=== PATIENT | male | born 1950 ===

== ENCOUNTER → 2020-04-24 10:30 | Outpatient (CLI) | payer OTHER | END | disposition home or self-care (01) | LOC: D.LABREF 10:30 | PROVIDERS: ATTEND Emergency Medicine | DX: K70.31 Alcoholic cirrhosis of liver with ascites (principal); E87.6 Hypokalemia; E44.1 Mild protein-calorie malnutrition; H10.10 Acute atopic conjunctivitis, unspecified eye ==

== ENCOUNTER → 2020-05-02 18:32 | Outpatient (CLI) | payer OTHER | END | disposition home or self-care (01) | LOC: D.LABREF 18:32 | PROVIDERS: ATTEND Emergency Medicine | DX: K74.60 Unspecified cirrhosis of liver (principal) ==

== ENCOUNTER → 2020-05-09 13:54 | Outpatient (CLI) | payer OTHER | END | disposition home or self-care (01) | LOC: D.LABREF 13:54 | PROVIDERS: ATTEND Emergency Medicine | DX: K70.31 Alcoholic cirrhosis of liver with ascites (principal); E44.1 Mild protein-calorie malnutrition; F10.10 Alcohol abuse, uncomplicated ==

== ENCOUNTER → 2020-05-16 14:30 | Outpatient (CLI) | payer OTHER | END | disposition home or self-care (01) | LOC: D.LABREF 14:30 | PROVIDERS: ATTEND Emergency Medicine | DX: K74.60 Unspecified cirrhosis of liver (principal) ==

== ENCOUNTER → 2020-08-02 16:22 | Outpatient (CLI) | payer OTHER ==
[2020-08-02 18:18] LABS: ALBUMIN 2.5 g/dL (3.4-5.0); ANION GAP 10.2 mmol/L (8-16); BILIRUBIN - TOTAL 2.16 mg/dL (0.2-1.3); CALCIUM 8.4 mg/dL (8.5-10.1); CARBON DIOXIDE 24.4 mmol/L (21.0-32.0); CREATININE - SERUM 1.3 mg/dL (0.6-1.3); POTASSIUM - SERUM 3.6 mmol/L (3.5-5.1); PROTEIN - SERUM 7.1 g/dL (6.4-8.2)
[2020-08-02 18:25] LABS: HEMATOCRIT 36.5 % (42.0-54.0); HEMOGLOBIN 12.5 g/dL (13.5-17.5); MCH 31.9 pg (26.0-34.0); MCHC 34.2 g/dL (31.0-37.0); MCV 93.1 fL (80.0-100.0); MEAN PLATELET VOLUME 9.2 fL (7.4-10.4); RBC 3.92 10x6/uL (4.20-6.10); RDW 17.9 % (11.5-14.5); WBC 4.5 10x3/uL (4.8-10.8)
== END | disposition home or self-care (01) ==
LOC: D.LABREF 16:22
PROVIDERS: ATTEND Legal Medicine
DX: K70.31 Alcoholic cirrhosis of liver with ascites (principal)